=== PATIENT | female | born 1945 | race Caucasian/White ===

== ENCOUNTER 2016-11-28 08:52 | Day surgery (SDC) | payer MEDICARE, OTHER ==
[~2016-11-28] VITALS: Ht 157.5 cm; Wt 57.6 kg
[~2016-11-28 08:52] MED LIST: 0.9% Sodium Chloride 1,000 ML IV SCH; CHOL100045 PO; ESTR10TA CERVICAL; LOVA20TA PO; MULT-666 PO; OMEP20TA24 PO; Sodium Chloride LOK Flush 10 mL Syringe IV PRN; TUMERIC PO; UBID75CA PO; fentaNYL-PF 50 mCg/mL 2 mL Inj IVPUSH PRN
[2016-11-28 09:11] VITALS: BP 153/81; PULSE 80; RESP 17; O2SAT 96
[2016-11-28] MEDS ORDERED: LIP40 PO (09:18)
[2016-11-28] MEDS ORDERED: ESTR10TA VG (09:19)
[2016-11-28 10:15] VITALS: BP 112/57; PULSE 69; RESP 14; O2SAT 96
[2016-11-28 10:27] VITALS: BP 111/60; PULSE 78; RESP 14; O2SAT 99
[2016-11-28 10:37] VITALS: BP 118/66; PULSE 74; RESP 14; O2SAT 99
--- NOTE | 2016-11-28 12:03 | ENDO ---
[address] [address] ENDOSCOPY PROCEDURE PATIENT: CLEMENCIA GATES : 1945 MR#: [id number] ADMIT: 11/28/2016 JOB ID: [id number] DATE: 11/28/2016 PROCEDURE: Colonoscopy. INDICATIONS: Screening. ASA CLASSIFICATION: II MALLAMPATI SCORE: 2 MEDICATIONS: Versed at 4 mg, fentanyl 75 mcg. INSTRUMENT USED: [id number]. PREPARATION QUALITY: Good. PROCEDURE DETAILS: After informed consent was obtained, the patient was brought into the GI suite where she was placed on oxygen via nasal cannula and monitored with continuous pulse oximeter, telemetry, and blood pressure monitoring. A time-out was performed. Then, she was placed in a left lateral decubitus position and medications were administered for sedation. Digital rectal exam was performed which was unremarkable. The colonoscope was then inserted into the rectum and advanced under direct visualization to the cecum, which was identified by the presence of the ileocecal valve and appendiceal orifice. Once the cecum was reached, the colonoscope was withdrawn back to the rectum as the mucosa and lumen were examined. In the rectum, retroflexion was performed. Following retroflexion, remaining air in the rectum was suctioned, and procedure was completed. FINDINGS: 1. In the sigmoid colon, there was a diminutive polyp that was removed with cold biopsy forceps. 2. Retroflexed views in the rectum were unremarkable. IMPRESSION: Sigmoid colon polyp. RECOMMENDATIONS: Repeat colonoscopy pending polyp pathology results. COMPLICATIONS: None. ESTIMATED BLOOD LOSS: Less than 5 mL.
--- NOTE | 2016-12-02 09:58 | PATH ---
SURGICAL PATHOLOGY Attending Physician:David Crowell CASE STATUS: Signed Out PATIENT NAME: CLEMENCIA GATES PID: [id number] : 1945 DATE COLLECTED:11/28/2016 18:10 SPECIMEN: Colon, Biopsy CLINICAL HISTORY: SIGMOID POLYP X1 FINAL DIAGNOSIS: 1.SIGMOID POLYP: POLYPOID-SHAPED FRAGMENT OF COLON MUCOSA CONSISTENT WITH MUCOSAL POLYPOID REDUNDANCY. ICD10 CODE K63.5 GROSS DESCRIPTION: Received in formalin, labeled with the patient' s name and "sigmoid polyp", is one fragment of lloyd, soft tissue measuring 0.1 x 0.1 x 0.1 cm. The fragment is totally submitted in cassette 1A. ([id number]) MICRO DESCRIPTION: See diagnosis. ICD-9 CODES: CPT CODES: 1: 29403 Electronically Signed Out Heriberto Hinojosa MD [facility] [address], [place] [address] Technical component performed at [facility], [facility] [address], [place], [address]
== END 2016-11-28 23:59 | disposition home or self-care (01) ==
LOC: END 08:52
PROVIDERS: ATTEND Internal Medicine Gastroenterology
DX: Z12.11 Encounter for screening for malignant neoplasm of colon (principal); K63.5 Polyp of colon; E78.00 Pure hypercholesterolemia, unspecified; K21.9 Gastro-esophageal reflux disease without esophagitis; K58.9 Irritable bowel syndrome, unspecified; M54.5 Low back pain; N64.4 Mastodynia
CPT/HCPCS: 45380; G0500; J2250; J3010; J7030